=== PATIENT | female | born 1975 | race African-American/Black ===

== ENCOUNTER → 2016-07-05 | Outpatient (CLI) | payer OTHER ==
[2015-11-07 10:39] VITALS: BP 133/63
[~2016-07-05] MED LIST: CETI10TA22 PO; OXYC-323 PO; PHEN37.53 PO; POLY17PO5 PO; PROAIR HFA8.5 GM INH
--- NOTE | 2016-07-05 16:10 | KCIC ---
Ultrasound pelvis transvaginal Indication: Menorrhagia. Patient's prior ultrasound is not available for comparison. The uterus measures 10.2 x 5.3 x 5.5 centimeters. The endometrium is 7 millimeters in thickness. No uterine mass is detected. The right ovary is surgically absent. Left ovary is enlarged at 5.3 x 2.9 x 5.0 centimeters. There is a complex mass involving the left ovary measuring 4.8 x 2.3 x 4.5 centimeters. This could represent a hemorrhagic cyst. No other masses are seen. There is a small amount of free fluid. Impression: Complex left ovarian mass. While this could conceivably represent a hemorrhagic cyst, close interval follow-up with repeat ultrasound in 4-6 weeks is recommended to confirm resolution. Electronically signed by: David Cantor MD (Jul 05, 2016 16:09:14)
== END | disposition home or self-care (01) ==
LOC: KCIC US 15:08
PROVIDERS: ATTEND Obstetrics & Gynecology
DX: N92.0 Excessive and frequent menstruation with regular cycle (principal); N83.8 Other noninflammatory disorders of ovary, fallopian tube and broad ligament
CPT/HCPCS: 76830; 76856